=== PATIENT | female | born 1965 ===

== ENCOUNTER 2016-09-30 08:37 | Day surgery (SDC) | payer OTHER ==
[2016-09-30 09:48] VITALS: BMI 28.3
[2016-09-30] MEDS ORDERED: Propofol 10 mg/ml Inj (20 ML) ONE ×2 (10:57→11:13)
[2016-09-30 14:14] VITALS: TEMP 97.8
[2016-09-30 14:24] VITALS: BP 113/71; PULSE 63; RESP 16; O2SAT 96
== END 2016-09-30 12:40 | disposition home or self-care (01) ==
LOC: C.ENDO 08:37
PROVIDERS: ATTEND Internal Medicine Gastroenterology
DX: Z12.11 Encounter for screening for malignant neoplasm of colon (principal); D12.7 Benign neoplasm of rectosigmoid junction; K64.1 Second degree hemorrhoids
CPT/HCPCS: 45380; 45385; 82948; 84703; 88305; J2704; J7040

== ENCOUNTER 2017-02-24 18:07 | Emergency (ER) | payer OTHER ==
[2017-02-24 18:07] VITALS: BMI 28.3
[2017-02-24 18:17] VITALS: TEMP 98.2; O2SAT 99
--- NOTE | 2017-02-24 19:44 | C.PDOC ---
History Of Present Illness 51 y/o female presents to ED with complaints of headache for "several days". Patient reports pain is constant and on the frontal aspect of head. Patient states she gets frequent headache but current headache is more persistent than usual and denies fever, nausea, vomiting or any other associated symptoms at this time. RECUR JACKSON X SEV DAYS. FRONTAL CONSTANT. NO RELIEF W OTC TYLENOL. PS GETS FREQ JACKSON , CURRENT MORE PERSISTENT THAN USUAL. NO FEVER, NV, OTHER ASSOC SX EXAM MILD DIST NONTOXIC HEENT NO PHOTOPHOBIA; NOSE CLEAR; NO SINUS TEND NECK SUPPLE NEURO INTACT NEG Time Seen by Provider: 02/24/17 19:17 Chief Complaint (Nursing): High Blood Pressure History Per: Patient History/Exam Limitations: no limitations Onset/Duration Of Symptoms: Days, Persistent Current Symptoms Are (Timing): Still Present Past Medical History Reviewed: Historical Data, Nursing Documentation, Vital Signs Vital Signs: Last Vital Signs Temp 98.2 F 02/24/17 18:13 Pulse 70 02/24/17 18:13 Resp 18 02/24/17 18:13 BP 159/93 H 02/24/17 18:13 Pulse Ox 99 02/24/17 20:05 - Medical History PMH: Arthritis, Colonic Polyps, HTN Surgical History: No Surg Hx Family History: States: No Known Family Hx - Social History Hx Alcohol Use: No Hx Substance Use: No Review Of Systems Except As Marked, All Systems Reviewed And Found Negative. Eyes: Negative for: Vision Change Gastrointestinal: Negative for: Nausea, Vomiting Neurological: Positive for: Headache. Negative for: Weakness, Numbness, Dizziness Physical Exam - Physical Exam Appears: Non-toxic, Other (Mild distress) Skin: Normal Color, Warm, Dry, No Rash Head: Atraumatic, Normacephalic Eye(s): bilateral: Normal Inspection, EOMI Nose: Normal, No Tenderness Oral Mucosa: Moist Neck: Normal ROM, Supple Cardiovascular: Rhythm Regular Respiratory: Normal Breath Sounds, No Accessory Muscle Use, No Rales, No Rhonchi , No Wheezing Gastrointestinal/Abdominal: Soft, No Tenderness, No Guarding, No Rebound Neurological/Psych: Oriented x3, Normal Speech, Normal Cognition, Normal Motor, Normal Sensation Gait: Steady ED Course And Treatment O2 Sat by Pulse Oximetry: 99 (RA) Pulse Ox Interpretation: Normal Progress - Re-Evaluation Re-evaluation Note: 02/24/17 21:04 FEELS BETTER. NEURO INTACT. - Data Reviewed Data Reviewed: Diagnostic imaging, Old records Disposition Counseled Patient/Family Regarding: Studies Performed, Diagnosis, Need For Followup - Disposition Referrals: YOUR,PMD [Other] Disposition: HOME/ ROUTINE Disposition Time: 21:04 Condition: IMPROVED Instructions: Migraine Headache (ED) Forms: [employer] (Yi) Print Language: MALDIVIAN - Clinical Impression Clinical Impression: Headache - Scribe Statement The provider has reviewed the documentation as recorded by the Josieibcesilia Cain All medical record entries made by the Sinan were at my direction and personally dictated by me. I have reviewed the chart and agree that the record accurately reflects my personal performance of the history, physical exam, medical decision making, and the department course for this patient. I have also personally directed, reviewed, and agree with the discharge instructions and disposition.
--- NOTE | 2017-02-24 20:30 | CT ---
EXAM: CT Head Without Intravenous Contrast EXAM DATE/TIME: 02/24/2017 7:44 PM CLINICAL HISTORY: 51 years old, female; Condition or disease; Headache TECHNIQUE: Axial computed tomography images of the head/brain without intravenous contrast. All CT scans at this facility use one or more dose reduction techniques, viz.: automated exposure control; ma/kV adjustment per patient size (including targeted exams where dose is matched to indication; i.e. head); or iterative reconstruction technique. COMPARISON: MR - PITUITARY W/WO CONT 2015-12-22 13:32 FINDINGS: Brain: Ventricles are normal in size and configuration. There is no midline shift. There are no intra-axial or extra-axial mass lesions or areas of hemorrhage. There are no abnormal fluid collections. Stringer-white differentiation is maintained. Ventricles: See above. Bones: Cranial vault is intact. Soft tissues: unremarkable Sinuses: There is no acute sinusitis. Ears and mastoids: Middle ears and mastoids are unremarkable Orbits: Orbital contents are unremarkable. IMPRESSION: No acute intracranial abnormality
[2017-02-24 21:16] VITALS: BP 134/80; PULSE 80; RESP 14
== END 2017-02-24 21:15 | disposition home or self-care (01) ==
LOC: C.ER 18:07
DX: R51 Headache (principal)
CPT/HCPCS: 70450; 96372; 99285; J1885; J2765; J3030

== ENCOUNTER 2018-07-14 07:38 | Outpatient (CLI) | payer BC | END 2018-07-14 07:39 | disposition home or self-care (01) | LOC: C.CARD 07:38 | DX: I10 Essential (primary) hypertension (principal) ==

== ENCOUNTER 2018-08-17 06:36 | Day surgery (SDC) | payer BC ==
[2018-08-17 06:58] VITALS: BMI 26.9
[2018-08-17] MEDS ORDERED: Lactated Ringer's 500 ML IV ONE (07:54)
[2018-08-17] MEDS ORDERED: Propofol 10 mg/ml Inj (20 ML) ONE (08:00)
[2018-08-17 08:35] VITALS: TEMP 98.4
[2018-08-17 08:42] VITALS: RESP 16; O2SAT 99
[2018-08-17] MEDS ORDERED: Lactated Ringer's 500 ML IV SCH (09:00)
[2018-08-17 09:54] VITALS: BP 113/69; PULSE 64
== END 2018-08-17 09:25 | disposition home or self-care (01) ==
LOC: C.ENDO 06:36
PROVIDERS: ATTEND Internal Medicine Gastroenterology
DX: Z12.11 Encounter for screening for malignant neoplasm of colon (principal); K57.30 Diverticulosis of large intestine without perforation or abscess without bleeding; K64.8 Other hemorrhoids
CPT/HCPCS: 45378; 82948; 84703; J2704; J3010; J7120